=== PATIENT | female | born 1975 | race Caucasian/White ===

== ENCOUNTER 2021-08-20 01:53 | Inpatient (IN) | payer OTHER ==
[2021-08-20 02:06] VITALS: BMI 29.6
[2021-08-20] MEDS ORDERED: LOPERAMIDE HCL 2 MG CAPSULE PO PRN (03:01)
[2021-08-20] MEDS ORDERED: BENZOCAINE/MENTHOL (CHLORASEPTIC ) LOZENGE MM PRN (03:01)
[2021-08-20] MEDS ORDERED: DICYCLOMINE HCL 10 MG CAPSULE PO PRN (03:01)
[2021-08-20] MEDS ORDERED: MAGNESIUM CITRATE 300 ML BOTTLE PO PRN (03:01)
[2021-08-20] MEDS ORDERED: BISMUTH SUBSALICYLATE 524 MG/30 ML PO PRN (03:01)
[2021-08-20] MEDS ORDERED: MAG HYDROX/AL HYDROX/SIMETH 30 ML UNIT-DOSE CUP PO PRN (03:01)
[2021-08-20] MEDS ORDERED: ONDANSETRON *ODT* 4 MG TABLET SL PRN (03:01)
[2021-08-20] MEDS ORDERED: MAGNESIUM HYDROX 2400MG/30ML ORAL SUSPENSION 30 ML CUP PO PRN (03:01)
[2021-08-20] MEDS ORDERED: ACETAMINOPHEN 325 MG TABLET (FP) PO PRN (03:01)
[2021-08-20] MEDS ORDERED: cloNIDine HCL 0.1 MG TABLET PO PRN (03:08)
[2021-08-20] MEDS ORDERED: methaDONE HCL 10 MG TABLET (FOR DETOX USE ONLY) PO ONE ×2 (03:08→10:00)
[2021-08-20] MEDS: IBUPROFEN 400 MG TABLET (FP) PO PRN ×2 (03:40→12:03)
[2021-08-20] MEDS ORDERED: methaDONE HCL 10 MG TABLET (FOR DETOX USE ONLY) ONE (09:26)
[2021-08-20] MEDS ORDERED: IBUPROFEN 400 MG TABLET (FP) PO ONE (12:06)
[2021-08-20] MEDS: PRENATAL VITAMINS W/ FOLIC ACID TABLET (FP) PO SCH (13:04)
[2021-08-20] MEDS: METHOCARBAMOL 500 MG TABLET PO PRN (14:49)
[2021-08-20 17:14] LABS: HEMATOCRIT 32.8 % (32.4-45.2); HEMOGLOBIN 10.3 GM/dL (10.7-15.3); MCH 24.7 pg (25.7-33.7); MCHC 31.5 g/dl (32.0-36.0); MEAN CELL VOLUME 78.5 fl (80-96); MEAN PLT VOLUME 10.7 fl (7.5-11.1); PLATELET COUNT 242 10^3/uL (134-434); RBC 4.18 M/mm3 (3.60-5.2); RDW 14.5 % (11.6-15.6); WHITE BLOOD COUNT 4.5 K/mm3 (4.0-10.0)
[2021-08-20 17:34] LABS: CALCIUM 8.9 mg/dL (8.5-10.1)
[2021-08-20 17:35] LABS: ALBUMIN 3.6 g/dl (3.4-5.0); BLOOD UREA NITROGEN 10.6 mg/dL (7-18)
[2021-08-20 17:38] LABS: BILIRUBIN,TOTAL 0.3 mg/dL (0.2-1); TOT PROT 7.9 g/dl (6.4-8.2)
[2021-08-20] MEDS: NICOTINE 10 MG CARTRIDGE (INHALER) IH SCH (18:58)
[2021-08-20] MEDS ORDERED: QUEtiapine FUMARATE 400 MG TABLET PO SCH (22:00)
[2021-08-20] MEDS: THIAMINE HCL 100 MG TABLET (FP) PO SCH (22:04)
[2021-08-20] MEDS: QUEtiapine FUMARATE 100 MG TABLET (FP) PO SCH (22:04)
[2021-08-20] MEDS: MELATONIN 5 MG TABLETS PO SCH (22:04)
[2021-08-21] MEDS ORDERED: methaDONE HCL 10 MG TABLET (FOR DETOX USE ONLY) ONE (09:22)
[2021-08-21] MEDS: PRENATAL VITAMINS W/ FOLIC ACID TABLET (FP) PO SCH (10:25)
[2021-08-21] MEDS: NICOTINE 10 MG CARTRIDGE (INHALER) IH SCH (10:28)
[2021-08-21 14:08] LABS: SARS-CoV-2 NAA Not Detected (Not Detected)
[2021-08-21] MEDS: METHOCARBAMOL 500 MG TABLET PO PRN (20:05)
[2021-08-21] MEDS: QUEtiapine FUMARATE 100 MG TABLET (FP) PO SCH (22:12)
[2021-08-21] MEDS: THIAMINE HCL 100 MG TABLET (FP) PO SCH (22:12)
[2021-08-21] MEDS: MELATONIN 5 MG TABLETS PO SCH (22:12)
[2021-08-22] MEDS: IBUPROFEN 400 MG TABLET (FP) PO PRN (03:48)
[2021-08-22] MEDS ORDERED: methaDONE HCL 10 MG TABLET (FOR DETOX USE ONLY) PO ONE (10:00)
[2021-08-22 10:07] LABS: SARS-CoV-2 NAA Not Detected (Not Detected)
[2021-08-22] MEDS: NICOTINE 10 MG CARTRIDGE (INHALER) IH SCH (10:16)
[2021-08-22] MEDS: PRENATAL VITAMINS W/ FOLIC ACID TABLET (FP) PO SCH (10:16)
[2021-08-22] MEDS: METHOCARBAMOL 500 MG TABLET PO PRN (18:06)
[2021-08-22] MEDS: MELATONIN 5 MG TABLETS PO SCH (22:20)
[2021-08-22] MEDS: QUEtiapine FUMARATE 100 MG TABLET (FP) PO SCH (22:20)
[2021-08-22] MEDS: THIAMINE HCL 100 MG TABLET (FP) PO SCH (22:20)
[2021-08-22] MEDS: ACETAMINOPHEN 325 MG TABLET (FP) PO PRN (22:20)
[2021-08-23] MEDS ORDERED: methaDONE HCL 10 MG TABLET (FOR DETOX USE ONLY) ONE (10:00)
[2021-08-23] MEDS: METHOCARBAMOL 500 MG TABLET PO PRN ×2 (10:37→17:53)
[2021-08-23] MEDS: PRENATAL VITAMINS W/ FOLIC ACID TABLET (FP) PO SCH (10:40)
[2021-08-23] MEDS: NICOTINE 10 MG CARTRIDGE (INHALER) IH SCH (10:51)
[2021-08-23] MEDS: ACETAMINOPHEN 325 MG TABLET (FP) PO PRN (15:56)
[2021-08-23] MEDS: hydrOXYzine PAMOATE 25 MG CAPSULE (FP) PO PRN (17:53)
[2021-08-23] MEDS: MELATONIN 5 MG TABLETS PO SCH (22:14)
[2021-08-23] MEDS: THIAMINE HCL 100 MG TABLET (FP) PO SCH (22:14)
[2021-08-23] MEDS: QUEtiapine FUMARATE 100 MG TABLET (FP) PO SCH (22:14)
[2021-08-24] MEDS ORDERED: methaDONE HCL 10 MG TABLET (FOR DETOX USE ONLY) PO ONE (10:00)
[2021-08-24] MEDS: ACETAMINOPHEN 325 MG TABLET (FP) PO PRN (10:48)
[2021-08-24] MEDS: PRENATAL VITAMINS W/ FOLIC ACID TABLET (FP) PO SCH (10:48)
[2021-08-24] MEDS: NICOTINE 10 MG CARTRIDGE (INHALER) IH SCH (10:49)
[2021-08-24] MEDS: VITAMINS A AND D TOPICAL OINTMENT 60 GM TUBE TP SCH ×2 (11:50→22:49)
[2021-08-24] MEDS: hydrOXYzine PAMOATE 25 MG CAPSULE (FP) PO PRN ×2 (17:28→22:37)
[2021-08-24] MEDS: QUEtiapine FUMARATE 100 MG TABLET (FP) PO SCH (22:34)
[2021-08-24] MEDS: THIAMINE HCL 100 MG TABLET (FP) PO SCH (22:34)
[2021-08-24] MEDS: MELATONIN 5 MG TABLETS PO SCH (22:34)
[2021-08-24] MEDS ORDERED: ALBUTEROL SO4 HFA INHALER IH ONE (22:36)
[2021-08-24] MEDS: METHOCARBAMOL 500 MG TABLET PO PRN (22:37)
[2021-08-24] MEDS ORDERED: ALBUTEROL SO4 HFA INHALER IH PRN (23:31)
[2021-08-25] MEDS: METHOCARBAMOL 500 MG TABLET PO PRN (07:14)
[2021-08-25] MEDS: hydrOXYzine PAMOATE 25 MG CAPSULE (FP) PO PRN (07:14)
[2021-08-25 09:08] VITALS: BP 84/56; PULSE 96; TEMP 97.1
== END 2021-08-25 10:20 | disposition home or self-care (01) | DRG 773 ==
LOC: YASAS 01:53 → Y3N 13:03
PROVIDERS: ADMIT Allergy & Immunology; ATTEND Allergy & Immunology
PROC: HZ2ZZZZ Detoxification Services for Substance Abuse Treatment (ICD-10-PCS; principal; 2021-08-20)
DX: F11.23 Opioid dependence with withdrawal (principal); F14.20 Cocaine dependence, uncomplicated; F12.20 Cannabis dependence, uncomplicated; F19.282 Other psychoactive substance dependence with psychoactive substance-induced sleep disorder; F31.9 Bipolar disorder, unspecified; F41.9 Anxiety disorder, unspecified; E78.5 Hyperlipidemia, unspecified; I10 Essential (primary) hypertension; J45.909 Unspecified asthma, uncomplicated; K76.0 Fatty (change of) liver, not elsewhere classified; Z96.652 Presence of left artificial knee joint; Z62.810 Personal history of physical and sexual abuse in childhood; Z87.891 Personal history of nicotine dependence; Z28.310 Unvaccinated for COVID-19
CPT/HCPCS: 36415; 73562-TC-LT-FY; 74177-TC; 80053; 81003; 81025; 83690; 84484; 84703; 85025; 85027; 86780; 87086; 93005; 93010; 99281-25; C9803-CS; U0003; U0005